=== PATIENT | female | born 1970 | race Caucasian/White ===

== ENCOUNTER 2017-03-26 14:13 | Emergency (ER) | payer BC, OTHER ==
--- NOTE | 2017-03-26 14:16 | PDOC ---
History of Present Illness - General History Source: Patient Exam Limitations: No Limitations - History of Present Illness Initial Comments: 03/26/17 15:13 The patient is a 46 year old, with no significant past medical history, who presents today complaining of multiple episodes of dizziness, lightheadedness, SOB starting 6 days ago. The patient visited the emergency room today after experiencing a sudden onset of tingling, dizziness, and SOB while sitting down and working on her computer around 12:30pm. The SOB was accompanied by tightness in her throat. She reports a burning/tingling headache in the back of her head, 3/10 in severity, that is more uncomfortable than painful. The patient states that the first episode occurred on Thursday, 6 days ago, after participating in 2 exercise classes. She thought she might have been dehydrated and went home to eat and drink water. The feeling subsided. On Thursday, 5 days ago, she reports the most severe episode of feeling disoriented, dizzy, and lightheaded lasting approximately 45 minutes while driving home from the city. She had to head well puller the car, and called her to pick her up because she was unable to drive. After drinking water and eating a banana she reports feeling better, but not 100% normal. She did not experience any more episodes until Thursday, 2 days ago, while driving to spin class. She did not exercise, but instead went to her doctor's office where she had blood work drawn. The patient was supposed to go to the office today for a holter monitor, but came to the emergency room instead. No fever, nausea, chills, vomiting. No chest pain. No palpitations No recent travel. No swelling in the legs. No family history of heart disease. Allergies: Penicillin Social Hx: Social alcohol use. No tobacco use. PCP- Dr. Essie Mayers at [facility] <Kalie Tang - Last Filed: 03/26/17 15:21> - General History Source: Patient Exam Limitations: No Limitations <Lyndsay Camacho - Last Filed: 03/28/17 10:22> - General Chief Complaint: Shortness of Breath Stated Complaint: DIZZINESS,TINGLING,SHORTNESS OF BREATH Time Seen by Provider: 03/26/17 14:16 Past History <Kalie Tang - Last Filed: 03/26/17 15:21> <Lyndsay Camacho - Last Filed: 03/28/17 10:22> - Past Medical History Allergies/Adverse Reactions: Allergies Allergy/AdvReac Type Severity Reaction Status Date / Time Penicillins AdvReac Unknown Verified 03/26/17 15:01 Home Medications: Ambulatory Orders Lmefolate/B3/Darryl/Zn/Millicent/Chrom [Nicomide Tablet] 1 each PO BID 03/26/17 Review of Systems - Review of Systems Able to Perform ROS?: Yes Comments:: 03/26/17 15:14 GENERAL/CONSTITUTIONAL: Yes: lightheadedness, dizziness, tingling. No: fever, chills, weakness, loss of appetite. HEAD, EYES, EARS, NOSE AND THROAT: No: change in vision, ear pain, discharge, sore throat, throat swelling. CARDIOVASCULAR: No: chest pain, palpitations, syncope RESPIRATORY: Yes: SOB. No: cough, shortness of breath, wheezing, hemoptysis, stridor. GASTROINTESTINAL: No: nausea, vomiting, abdominal cramping, diarrhea, rectal bleeding, constipation. GENITOURINARY: No: dysuria, hematuria, frequency, urgency, flank pain. MUSCULOSKELETAL: No: back pain, neck pain, joint pain, muscle swelling or pain SKIN: No: lesions, pallor, rash or easy bruising. NEUROLOGIC: Yes: burning headache in the back of the head, 3/10 in severity. No : vertigo, weakness ENDOCRINE: No: unexplained weight gain or loss HEMATOLOGIC/LYMPHATIC: No: anemia, easy bleeding, swelling nodes <Kalie Tang - Last Filed: 03/26/17 15:21> *Physical Exam - Vital Signs Last Vital Signs Temp Pulse Resp BP Pulse Ox 98.7 F 74 18 147/78 100 03/26/17 14:14 03/26/17 14:14 03/26/17 14:14 03/26/17 14:14 03/26/17 14:14 - Physical Exam Comments: 03/26/17 15:22 GENERAL: The patient is in no acute distress. HEAD: Normal with no signs of trauma. EYES: PERRLA, EOMI, sclera anicteric, conjunctiva clear. ENT: Ears normal, nares patent, oropharynx clear without exudates. Moist mucous membranes. NECK: Normal range of motion, supple without lymphadenopathy, JVD, or masses. LUNGS: Breath sounds equal, clear to auscultation bilaterally. No wheezes, and no crackles. HEART:Regular rate and rhythm, normal S1 and S2 without murmur, rub or gallop. ABDOMEN: Soft, nontender, normoactive bowel sounds. No guarding, no rebound. EXTREMITIES: Normal range of motion, no edema. No clubbing or cyanosis. No erythema, or tenderness. NEUROLOGICAL: Cranial nerves II through XII grossly intact. Normal speech. No focal neurological deficits. MUSCULOSKELETAL: Back nontender to palpation, no CVA tenderness SKIN: Warm, Dry, normal turgor, no rashes or lesions noted. <Kalie Tang - Last Filed: 03/26/17 15:21> Heart Score/ECG Review #1 ECG reviewed & interpreted by me at: 15:27 03/26/17 15:27 Twelve-lead EKG was performed and reviewed by me. There is normal sinus rhythm with a normal rate of 70 bpm. The axis is normal. The intervals are normal - pr : 148ms, QRS:99ms, QTc:455. No RSR', no QT prolongation <Lyndsay Camacho - Last Filed: 03/28/17 10:22> Medical Decision Making - Medical Decision Making 03/26/17 14:16 A portion of this note was documented by scribe services under my direction. I have reviewed the details of the note, within reason, and agree with the documentation with the following case summary and management plan written by me. Nursing documentation reviewed and incorporated into medical decision making 03/26/17 14:43 This is a 46 yo F presenting to the ER with a complaint of dizziness and shortness of breath Her symptoms began 5 days ago and lasted for part of the day She felt so badly while driving that she had to head well puller and call her to pick her up Her symptoms improved by the end of the day The symptoms recurred two days later One prior episode like this which resolved Pt was seen by her PMD who did labs two days ago Pt had CBC, CMP, TSH, B12, D dimer D dimer negative TSH nml CBC and CMP nml Labs were obtained from pt PMD, given to registration to be scanned into the chart On examination: RRR Lungs clear no abd tenderness to palpation Neurologically intact Will do labs will do EKG Will do ? CT head Will do ? CT chest 03/26/17 15:40 I have had a long conversation with this patient Her work up is missing a troponin we have discussed this Pt states that her doctor has already made an appointment with a diamond powder mixer and this will be done after a Holter monitor Pt was supposed to have a holter monitor done She came instead to the Er I have contacted them to see if it could possibly be put on I spoke with Bessie Pt can not come today as there are no more appointments She has called the practice herself, she can be seen tomorrow at 11am Pt does not know why we need to repeat the labs I have offered to do a Head Ct as she has had intermittent occipital discomfort/ sensation Pt states symptoms are intermittent and NOT consistent I have stressed that this patient should return immediately to the ER for any other concerns or complaints 03/28/17 10:18 <Lyndsay Camacho - Last Filed: 03/28/17 10:22> *DC/Admit/Observation/Transfer - Attestations Scribe Attestion: 03/26/17 15:23 Documentation prepared by JAN Phillip, acting as director of graduate medical education for Lyndsay Camacho MD. <Kalie Tang - Last Filed: 03/26/17 15:21> - Discharge Dispostion Admit: No <Lyndsay Camacho - Last Filed: 03/28/17 10:22> Diagnosis at time of Disposition: Dizziness - Discharge Dispostion Disposition: HOME Condition at time of disposition: Stable - Patient Instructions Printed Discharge Instructions: DI for Dizziness-Nonvertigo Additional Instructions: Ms Ritter Thank you for coming in to the ER today Please review your labs please follow up with your physician tomorrow as already schedule RETURN IMMEDIATELY TO THE ER FOR ANY OTHER CONCERNS OR COMPLAINTS
[2017-03-26 14:46] VITALS: BP 147/78; PULSE 74; TEMP 98.7; BMI 24.7
--- NOTE | 2017-03-28 16:20 | EKG ---
Test Reason : Blood Pressure : / mmHG Vent. Rate : 074 BPM Atrial Rate : 074 BPM P-R Int : 154 ms QRS Dur : 082 ms QT Int : 418 ms P-R-T Axes : 056 067 059 degrees QTc Int : 463 ms NORMAL SINUS RHYTHM NO PREVIOUS ECGS AVAILABLE Confirmed by MD REINALDO, STANISLAV ([id number]) on 03/28/2017 4:19:30 PM Referred By: BOB MOURA Confirmed By:STANISLAV NAJERA MD
== END 2017-03-26 15:41 | disposition home or self-care (01) ==
LOC: FER 14:13
DX: R42 Dizziness and giddiness (principal)
CPT/HCPCS: 93005; 93010; 99282-25

== ENCOUNTER 2020-09-30 14:52 | Observation (INO) | payer OTHER ==
[2020-09-30] MEDS ORDERED: dilTIAZem HCL 50 MG/10 ML - 10 ML VIAL ONE (15:18)
[2020-09-30] MEDS ORDERED: SODIUM CHLORIDE 1,000 ML IV ONE (15:18)
[2020-09-30] MEDS ORDERED: dilTIAZem HCL 50 MG/10 ML - 10 ML VIAL IVPUSH ONE ×2 (15:18→15:34)
[2020-09-30] MEDS ORDERED: dilTIAZem HCL 30 MG TABLET PO ONE (15:41)
[2020-09-30] MEDS ORDERED: ASPIRIN 81 MG CHEWABLE TABLETS PO ONE (15:42)
[2020-09-30] MEDS ORDERED: dilTIAZem HCL 30 MG TABLET ONE (15:43)
[2020-09-30] MEDS ORDERED: ASPIRIN 81 MG CHEWABLE TABLETS ONE (15:43)
[2020-09-30 15:44] LABS: BASO % 0.6 % (0-2.0); HEMATOCRIT 42.5 % (32.4-45.2); HEMOGLOBIN 14.2 GM/dl (10.7-15.3); LYMPH % 20.6 % (8-40); MCH 33.4 pg (25.7-33.7); MCHC 33.4 g/dl (32.0-36.0); MEAN CELL VOLUME 99.9 fl (80-96); MEAN PLT VOLUME 8.7 fl (7.5-11.1); MONO % 7.9 % (3.8-10.2); NEUT % 68.9 % (42.8-82.8); PLATELET COUNT 380 K/MM3 (134-434); RBC 4.26 M/mm3 (3.60-5.2); RDW 12.4 % (11.6-15.6)
[2020-09-30 15:53] LABS: ACTIVATED PTT 21.7 SECONDS (25.2-36.5)
[2020-09-30 15:58] LABS: PROTHROMBIN TIME (PATIENT) 11.2 SEC (10.2-13.0)
[2020-09-30 16:09] LABS: ALBUMIN 4.2 g/dl (3.4-5.0); BILIRUBIN,TOTAL 0.9 mg/dl (0.2-1); CALCIUM 9.1 mg/dl (8.5-10); CREATININE 0.5 mg/dl (0.55-1.3); MAGNESIUM 1.8 mg/dL (1.8-2.4); POTASSIUM 3.5 mmol/L (3.5-5.1); TOT PROT 6.9 g/dl (6.4-8.2)
[2020-09-30 16:42] LABS: EPITHELIAL CELLS MODERATE /hpf
[2020-09-30 18:48] VITALS: BMI 26.6
[2020-10-01 07:57] LABS: BASO % 0.4 % (0-2.0); EOS % 5.6 % (0-4.5); HEMATOCRIT 37.3 % (32.4-45.2); HEMOGLOBIN 12.6 GM/dl (10.7-15.3); LYMPH % 31.6 % (8-40); MCH 33.3 pg (25.7-33.7); MCHC 33.7 g/dl (32.0-36.0); MEAN CELL VOLUME 98.6 fl (80-96); MEAN PLT VOLUME 8.6 fl (7.5-11.1); MONO % 10.5 % (3.8-10.2); NEUT % 51.9 % (42.8-82.8); PLATELET COUNT 315 K/MM3 (134-434); RBC 3.78 M/mm3 (3.60-5.2); RDW 12.5 % (11.6-15.6); WHITE BLOOD COUNT 6.5 K/mm3 (4.0-10.8)
[2020-10-01 08:00] LABS: ALBUMIN 3.6 g/dl (3.4-5.0); BILIRUBIN,TOTAL 1.1 mg/dl (0.2-1); CALCIUM 8.6 mg/dl (8.5-10); CREATININE 0.6 mg/dl (0.55-1.3); POTASSIUM 3.8 mmol/L (3.5-5.1); TOT PROT 5.8 g/dl (6.4-8.2)
[2020-10-01] MEDS ORDERED: DOXYCYCLINE HYCLATE 100 MG CAPSULE PO SCH (10:00)
[2020-10-01] MEDS ORDERED: ASPIRIN 81 MG CHEWABLE TABLETS PO SCH (10:00)
[2020-10-01 15:30] VITALS: BP 118/75; PULSE 67; TEMP 98.7
== END 2020-10-01 16:25 | disposition home or self-care (01) ==
LOC: FER 14:52 → FM/S 16:40
PROVIDERS: ADMIT Student in an Organized Health Care Education/Training Program; ATTEND Nurse Practitioner Acute Care
PROC: 3E033GC Introduction of Other Therapeutic Substance into Peripheral Vein, Percutaneous Approach (ICD-10-PCS; principal; 2020-09-30)
PROC: 3E0337Z Introduction of Electrolytic and Water Balance Substance into Peripheral Vein, Percutaneous Approach (ICD-10-PCS; 2020-09-30)
DX: I48.0 Paroxysmal atrial fibrillation (principal); R42 Dizziness and giddiness; Z20.828 Contact with and (suspected) exposure to other viral communicable diseases; Z88.0 Allergy status to penicillin; J30.9 Allergic rhinitis, unspecified
CPT/HCPCS: 36415; 71045-TC-FY; 80053; 81003; 81015; 82550; 83735; 84443; 84484; 84703; 85025; 85610; 85730; 93005; 93306-TC; 99285-25; C9803; G0378; U0003